=== PATIENT | male | born 1990 | race Two or more races ===

== ENCOUNTER 2019-09-28 16:40 | Emergency (ER) | payer SELFPAY ==
[~2019-09-28] VITALS: Ht 180.3 cm; Wt 86.2 kg
[2019-09-28 18:16] VITALS: BP 135/82
== END 2019-09-28 18:17 | disposition home or self-care (01) ==
LOC: ER 16:47
DX: S20.362A Insect bite (nonvenomous) of left front wall of thorax, initial encounter (principal); F12.10 Cannabis abuse, uncomplicated; W57.XXXA Bitten or stung by nonvenomous insect and other nonvenomous arthropods, initial encounter; Y93.89 Activity, other specified; Y99.8 Other external cause status; Y92.89 Other specified places as the place of occurrence of the external cause
CPT/HCPCS: 93005